=== PATIENT | male | born 1975 | race Caucasian/White ===

== ENCOUNTER 2016-05-07 01:12 | Emergency (ER) | payer SELFPAY ==
[~2016-05-07] VITALS: Ht 172.7 cm; Wt 91.0 kg
[~2016-05-07 01:12] MED LIST: CLOT1CRE6 TOPICAL; DIVA250T PO; OLAN10TA PO
[2016-05-07 01:14] VITALS: BP 119/65; PULSE 76; RESP 18; TEMP 98; O2SAT 98
--- NOTE | 2016-05-07 01:54 | PD ---
HPI Chief Complaint: Medical Clearance Time Seen by Provider: 01:50 Travel History International Travel<30 days: No Contact w/Intl Traveler<30days: No Traveled to known affect area: No History of Present Illness HPI 40-year-old male presents to emergency department requesting admission to the hospital in evaluation by a psychiatrist. He states that he has a history of bipolar disorder and had been living with his parents up until yesterday. He was kicked out of the house. He had an appointment with the ssis developer was determined to be stable and not a threat to himself or others. The patient states that he does not have access to his medications because they're in his parents house. He states that he would like to get a refill of his medications and be admitted to the hospital because he has nowhere else to go. He denies any suicidal homicidal ideation. No toxic ingestions. He denies any drug abuse. He does state today that he takes benzos that were prescribed to him by his doctor. He claims that he is now transitioning to a new psychiatrist. He does not have an appointment at [facility] until [facility] Past Medical History Bipolar Disorder: Yes Cancer: No Cardiovascular Problems: No Diminished Hearing: No Genitourinary: No Musculoskeletal: No Neurologic: No Psychiatric: Yes Reproductive: No Respiratory: No Immunizations Current: Yes Schizophrenia: Yes Tetanus Vaccination: < 5 Years Influenza Vaccination: Yes Past Surgical History Genitourinary Surgery: Yes (donated left kidney ) Other Surgery: Yes (LEFT NEPRECTOMY GIVEN TO HIS [id number]) Social History Alcohol Use: Yes Tobacco Use: Yes (1 PPD) Substance Use: No (history of CRYSTAL METH,HERIONE,CRACK AND WEED) Allergies-Medications (Allergen,Severity, Reaction): Coded Allergies: No Known Allergies (Unverified , 05/07/16) Reported Meds & Prescriptions Reported Meds & Active Scripts Active Divalproex DR (Divalproex Sodium) 250 Mg Tabdr 750 Mg PO BID 15 Days Clotrimazole Anti-Fungal Topical (Clotrimazole) 1% Cream 1 Applic TOPICAL Q12HR 11 Days Apply to feet. Olanzapine 10 Mg Tab 20 Mg PO HS 15 Days Review of Systems Except as stated in HPI: all other systems reviewed are Neg Psychiatric: Positive: Anxiety, Depression, No: Suicidal Ideations, Disorder of Thought, Mood Disorder, Substance Abuse, Homicidal Ideation Physical Exam Narrative GENERAL: Well-nourished, well-developed patient. Patient sleeping in the examination room. SKIN: Warm and dry. HEAD: Normocephalic and atraumatic. EYES: No scleral icterus. No injection or drainage. ENT: No nasal drainage noted. Mucous membranes pink. Airway patent. NECK: Supple, trachea midline. Moves head freely without obvious discomfort. CARDIOVASCULAR: Regular rate and rhythm without murmurs, gallops, or rubs. RESPIRATORY: Breath sounds equal bilaterally. No accessory muscle use. GASTROINTESTINAL: Abdomen soft, non-tender, nondistended. EXTREMITIES: No cyanosis or edema. BACK: Nontender without obvious deformity. No CVA tenderness. NEURO: Patient is alert and oriented. no sensorimotor deficits. Nonfocal. Normal speech. PSYCH: No delusions. No auditory or visual hallucinations. Data Data Last Documented VS Vital Signs Date Time Temp Pulse Resp B/P Pulse Ox O2 Delivery O2 Flow Rate FiO2 05/07/16 01:14 98.0 76 18 119/65 98 Orders Psych Screen (05/07/16 01:24) [facility] Medical Decision Making Medical Screen Exam Complete: Yes Emergency Medical Condition: Yes Medical Record Reviewed: Yes Differential Diagnosis MDM: High Differential diagnoses: Schizophrenia, schizoaffective disorder, bipolar, anxiety, depression, adjustment reaction, mood disorder NOS, ODD, depressive disorder NOS, dementia, dementia with agitation, psychosis NOS, substance induced mood disorder, intermittent explosive disorder, Asperger syndrome, infection,electrolyte abnormality, malingering. Narrative Course Mental health screening discussed with the patient. Psychiatric screen ordered. The patient has been medically cleared. I suspect the patient is malingering to ascertain a domicile for the day. The patient has early been seen by a ssis developer earlier in the day. He has been deemed competent per the patient. He is currently homeless. This is malingering, bipolar Diagnosis Primary Impression: Malingering Additional Impression: Schizoaffective disorder, bipolar type without good prognostic features Condition: Stable Jay Gordon May 07, 2016 01:54
== END 2016-05-07 05:29 | disposition home or self-care (01) ==
LOC: NEPA 01:12
DX: F31.9 Bipolar disorder, unspecified (principal); F25.0 Schizoaffective disorder, bipolar type; Z76.5 Malingerer [conscious simulation]
CPT/HCPCS: 99284